=== PATIENT | male | born 2000 | race African-American/Black ===

== ENCOUNTER 2023-03-07 15:15 | Inpatient (IN) ==
[2023-03-07 17:28] LABS: ABS Basophils 0.1 10^3/uL (0.0-0.1); ABS Lymphocytes 1.8 10^3/uL (1.0-4.8); ABS Monocytes 0.5 10^3/uL (0.0-1.1); ABS Neutrophils 5.6 10^3/uL (1.5-7.6); ABS Nucleated RBC 0.01 10^3/ul; Eosinophil % 0.2 %; Hemoglobin 15.2 g/dL (13.2-16.3); Lymphocyte % 22.8 %; Mean Corpuscular Hemoglobin 29.2 pg (27-33); Mean Corpuscular Hgb Conc 33.1 g/dL (31-36); Mean Corpuscular Volume 88.2 fL (80-97); Mean Platelet Volume 8.7 fL (7.5-11.2); Nucleated Red Blood Cells % 0.1 /100 WBC (0.0-0.4); Platelet Count 238 10^3/uL (150-450); Red Blood Count 5.22 10^6/uL (4.06-5.63); Red Cell Distribution Width 12.9 % (12-17)
[2023-03-07] MEDS ORDERED: Ziprasidone IM 20 mg VIAL 1 ml VIAL IM ONE (17:32)
[2023-03-07] MEDS ORDERED: Sterile Water for Inj 10 ML ONE (17:36)
[2023-03-07 17:48] LABS: ALT 38 U/L (7-52); AST 46 U/L (13-39); Albumin 5.1 g/dL (3.2-5.2); Albumin/Globulin Ratio 1.6 (1-3); Alkaline Phosphatase 62 U/L (35-149); Anion Gap 7 mmol/L (2-16); Blood Urea Nitrogen 16 mg/dL (6-24); CO2 Carbon Dioxide 29 mmol/L (22-32); Calcium 10.5 mg/dL (8.6-10.3); Chloride 104 mmol/L (101-111); Creatinine, Serum 1.08 mg/dL (0.67-1.17); Globulin 3.1 g/dL (2-4); Glucose 100 mg/dL (70-100); Potassium 4.1 mmol/L (3.5-5.0); Sodium 140 mmol/L (135-145); Total Protein 8.2 g/dL (6.4-8.9); eGFR CKD-EPI 97.7 (>60)
[2023-03-07] MEDS ORDERED: Midazolam 2 mg/2 ml VIAL 1 mg/ml 2 ml VIAL (2 mg) IM ONE (18:00)
[2023-03-07 18:10] LABS: Acetaminophen < 15 mcg/mL; Alcohol, S < 13 mg/dL (<13); Salicylate < 2.50 mg/dL (<30)
[2023-03-07 18:24] LABS: TSH Ultra Thyroid Stim Horm 1.15 mcIU/mL (0.34-5.60)
[2023-03-07] MEDS ORDERED: Al Hydrox/Mg Hydrox/Simet LIQ 30 ML UDC PO PRN (19:25)
[2023-03-07] MEDS ORDERED: chlorproMAZINE TAB 50 MG Q6H PRN AGITATION PO (20:00)
[2023-03-07] MEDS ORDERED: Nicotine GUM 2MG FRUIT FLAVOR PO PRN (20:00)
[2023-03-08] MEDS: Vitamin THERAPEUTIC TAB PO SCH (08:19)
[2023-03-09] MEDS: Vitamin THERAPEUTIC TAB PO SCH (09:22)
[2023-03-10] MEDS: Vitamin THERAPEUTIC TAB PO SCH (09:34)
[2023-03-11] MEDS: Vitamin THERAPEUTIC TAB PO SCH (08:38)
[2023-03-11 09:38] VITALS: BP 115/62
== END 2023-03-11 16:15 | disposition home or self-care (01) | DRG 897 ==
LOC: ED 15:15 → BSU 19:51
PROVIDERS: ADMIT Psychiatry & Neurology Psychiatry; ATTEND Psychiatry & Neurology Psychiatry

== ENCOUNTER 2024-02-16 17:39 | Inpatient (IN) ==
[2024-02-16 19:11] LABS: Urine Appearance Clear; Urine Bilirubin Negative (Negative); Urine Blood Negative (Negative); Urine Color Yellow; Urine Glucose Negative (Negative); Urine Ketones Negative (Negative); Urine Nitrite Negative (Negative); Urine Protein Trace (Negative); Urine Specific Gravity 1.033 (1.002-1.030); Urine Urobilinogen Negative (Negative); Urine pH 6.5 (5.0-8.0)
[2024-02-16 19:24] LABS: Urine Benzodiazepine Screen None Detected (None Detect); Urine Cannabinoids Screen None Detected (None Detect); Urine Opiates Screen None Detected (None Detect)
[2024-02-16] MEDS ORDERED: Al Hydrox/Mg Hydrox/Simet LIQ 30 ML UDC PO PRN (22:11)
[2024-02-17 08:51] LABS: HDL Cholesterol 67.8 mg/dL
[2024-02-17] MEDS: Vitamin THERAPEUTIC TAB PO SCH (10:06)
[2024-02-18 10:18] VITALS: BP 124/55
== END 2024-02-18 13:41 | disposition home or self-care (01) | DRG 775 ==
LOC: ED 17:39 → EDHOLD 22:16 → BSU 23:00
PROVIDERS: ADMIT Psychiatry & Neurology Psychiatry; ATTEND Student in an Organized Health Care Education/Training Program